=== PATIENT | female | born 1990 | race Caucasian/White ===

== ENCOUNTER 2017-01-28 17:43 | Emergency (ER) | payer SELFPAY ==
[~2017-01-28] VITALS: Ht 160 cm; Wt 78.4 kg
[~2017-01-28 17:43] MED LIST: BUDE10.22 PO; DICL75TA2 PO; DIPH25TA12 PO; LEVE250T28 PO; MONT10TA9 PO; OMEP-110 PO
[2017-01-28 18:59] LABS: ASPARTATE AMINO TRANSFERASE 15 U/L (15-37); BLOOD UREA NITROGEN 10 mg/dL (7-18)
[2017-01-28] MEDS ORDERED: SODIUM CHLORIDE FLUSH 10ML SYR IVF ONE (19:30)
[2017-01-28] MEDS ORDERED: SODIUM CHLORIDE 0.9% 1,000ML IVBOLUS ONE (19:30)
[2017-01-28 20:11] VITALS: BP 112/81
== END 2017-01-28 20:25 | disposition home or self-care (01) ==
LOC: ED 18:45
DX: O23.41 Unspecified infection of urinary tract in pregnancy, first trimester (principal); Z3A.12 12 weeks gestation of pregnancy; K59.00 Constipation, unspecified; O99.611 Diseases of the digestive system complicating pregnancy, first trimester
CPT/HCPCS: 36415; 80053; 81001; 83690; 84702; 85025; 87077; 87086; 87186; 96360; 99284; J7030